=== PATIENT | male | born 1955 | race Caucasian/White ===

== ENCOUNTER → 2020-08-26 | Outpatient (CLI) | payer MEDICARE ==
[~2020-08-26] MED LIST: ALLOPURINOL5 GM PO; ATENOLOL50 MG PO; LISINOPRIL5 MG PO; MYFORTIC360 MG PO; OMEPRAZOLE20 M1 PO; PRAVASTATIN SOD40 MG PO; PREDNISONE5 MG PO; TACROLIMUS1 MG PO
== END ==
LOC: MRI 08:39
PROVIDERS: ATTEND Family Medicine
DX: M54.16 Radiculopathy, lumbar region (principal)
CPT/HCPCS: 72146

== ENCOUNTER → 2020-09-04 | Outpatient (CLI) | payer MEDICARE ==
[~2020-09-04] MED LIST changes: +GADOBENATE DIMEGLUMINE 1 ML IV ONE
[2020-09-04 11:31] LABS: CREATININE, SERUM 1.33 mg/dL (0.72-1.25)
== END ==
LOC: MRI 10:52
PROVIDERS: ATTEND Neurological Surgery
DX: M51.16 Intervertebral disc disorders with radiculopathy, lumbar region (principal)
CPT/HCPCS: 36415; 72158; 82565; 84520; A9577

== ENCOUNTER → 2020-10-13 | Outpatient (CLI) | payer MEDICARE ==
[~2020-10-13] MED LIST changes: +FERROUS GLUCON324 M1 PO; +FISH OIL 1,0001 EAC2 PO; -GADOBENATE DIMEGLUMINE 1 ML IV ONE; +MAGNESIUM200 MG PO; +OMEPRAZOLE40 MG PO; +RAPAMUNE1 MG PO; +VIT B12 PO; +VITAMIN D350 MCG PO
[2020-10-13 09:31] LABS: BASOPHILS % 0.5 % (0.0-1.0); EOSINOPHILS # (AUTO) 0.1 (0.0-0.4); HEMATOCRIT 42.3 % (38.2-49.6); HEMOGLOBIN 14.5 g/dL (14.0-18.0); LYMPHOCYTES # (AUTO) 1.6 (1.0-3.2); LYMPHOCYTES % 28.8 % (18.0-39.1); MEAN CORPUSCULAR HEMOGLOBIN 32.8 pg (28-32); MEAN CORPUSCULAR HGB CONC 34.3 g/dL (31-35); MEAN CORPUSCULAR VOLUME 95.7 fL (81-99); MONOCYTES # (AUTO) 0.6 (0.2-0.8); MONOCYTES % 10.9 % (4.4-11.3); NEUTROPHILS # (AUTO) 3.2 (2.1-6.9); NEUTROPHILS % 57.6 % (38.7-80.0); PLATELET COUNT 198 x10e3/uL (140-360); RED BLOOD COUNT 4.42 x10e6/uL (4.3-5.7)
== END ==
LOC: DX 14:14 → EDSTATUS 10-16 07:00
PROVIDERS: ATTEND Physical Medicine & Rehabilitation Pain Medicine
DX: Z01.812 Encounter for preprocedural laboratory examination (principal); Z01.818 Encounter for other preprocedural examination; Z20.822 Contact with and (suspected) exposure to COVID-19; M47.817 Spondylosis without myelopathy or radiculopathy, lumbosacral region
CPT/HCPCS: 36415; 85025; 93005; U0002

== ENCOUNTER → 2020-11-20 | Day surgery (SDC) | payer MEDICARE ==
[~2020-11-20] MED LIST changes: +BUPIVACAINE 0.25% 30ML SDV ONE; +FENTANYL CITRATE/PF 100MCG/2 ML INJ ONE; +IOPAMIDOL 200 MG/ML 20 ML VIAL IT ONE; +LIDOCAINE HCL 1% 30ML-PF VIAL ONE; +LIDOCAINE HCL 2% LOCAL INJ 5 ML SDV VIAL INJ ONE; +MIDAZOLAM HCL 2 MG/2 ML VIAL ONE; +POVIDONE IODINE 0.05% 0.05 % ML PO ONE; +PROPOFOL IV EMULSION 10 MG/ML 20 ML VIAL ONE; +TRIAMCINOLONE ACET 40 MG/ML VIAL ONE
[2020-11-20 09:20] VITALS: BP 127/86
== END | disposition home or self-care (01) ==
LOC: OR 06:28
PROVIDERS: ATTEND Physical Medicine & Rehabilitation Pain Medicine
DX: M46.1 Sacroiliitis, not elsewhere classified (principal); G57.01 Lesion of sciatic nerve, right lower limb; R93.7 Abnormal findings on diagnostic imaging of other parts of musculoskeletal system; M54.5 Low back pain; M53.86 Other specified dorsopathies, lumbar region; Z96.652 Presence of left artificial knee joint; Z96.611 Presence of right artificial shoulder joint; I12.0 Hypertensive chronic kidney disease with stage 5 chronic kidney disease or end stage renal disease; N18.6 End stage renal disease; Z94.0 Kidney transplant status; Z01.812 Encounter for preprocedural laboratory examination; Z20.822 Contact with and (suspected) exposure to COVID-19; E78.00 Pure hypercholesterolemia, unspecified; Z85.528 Personal history of other malignant neoplasm of kidney; Z90.5 Acquired absence of kidney
CPT/HCPCS: G0260; J2001 ×2; J2250; J2704; J3010; J3301; Q9967; U0002; 76000

== ENCOUNTER → 2021-01-29 | Day surgery (SDC) | payer MEDICARE ==
[2021-01-27 13:31] LABS: BASOPHILS % 0.3 % (0.0-1.0); EOSINOPHILS % 0.5 % (0.0-6.0); HEMATOCRIT 41.6 % (38.2-49.6); HEMOGLOBIN 14.1 g/dL (14.0-18.0); LYMPHOCYTES # (AUTO) 1.1 (1.0-3.2); LYMPHOCYTES % 17.9 % (18.0-39.1); MEAN CORPUSCULAR HEMOGLOBIN 32.5 pg (28-32); MEAN CORPUSCULAR HGB CONC 33.9 g/dL (31-35); MEAN CORPUSCULAR VOLUME 95.9 fL (81-99); MONOCYTES # (AUTO) 0.5 (0.2-0.8); MONOCYTES % 8.2 % (4.4-11.3); NEUTROPHILS # (AUTO) 4.5 (2.1-6.9); NEUTROPHILS % 72.8 % (38.7-80.0); PLATELET COUNT 207 x10e3/uL (140-360); RED BLOOD COUNT 4.34 x10e6/uL (4.3-5.7); RED CELL DISTRIBUTION WIDTH 12.8 % (11.7-14.4)
[~2021-01-29] MED LIST changes: +BUPIVACAINE HCL 0.5% 10ML MPF VIAL INJ ONE; +JARDIANCE25 MG PO; +LIPITOR10 MG PO; -MIDAZOLAM HCL 2 MG/2 ML VIAL ONE; -POVIDONE IODINE 0.05% 0.05 % ML PO ONE
[2021-01-29 10:50] VITALS: BP 110/79
== END | disposition home or self-care (01) ==
LOC: OR 06:59
PROVIDERS: ATTEND Physical Medicine & Rehabilitation Pain Medicine
DX: M46.1 Sacroiliitis, not elsewhere classified (principal); G57.01 Lesion of sciatic nerve, right lower limb; M79.18 Myalgia, other site; E11.9 Type 2 diabetes mellitus without complications; K21.9 Gastro-esophageal reflux disease without esophagitis; I10 Essential (primary) hypertension; G47.33 Obstructive sleep apnea (adult) (pediatric); E78.00 Pure hypercholesterolemia, unspecified; Z94.0 Kidney transplant status; Z01.810 Encounter for preprocedural cardiovascular examination; Z01.812 Encounter for preprocedural laboratory examination
CPT/HCPCS: 20552; G0260; 36415; 77002; 82948; 85025; 93005; J2001; J3010; J3301; Q9967

== ENCOUNTER → 2021-10-28 | Outpatient (CLI) | payer MEDICARE ==
[~2021-10-28] MED LIST changes: -BUPIVACAINE 0.25% 30ML SDV ONE; -BUPIVACAINE HCL 0.5% 10ML MPF VIAL INJ ONE; -FENTANYL CITRATE/PF 100MCG/2 ML INJ ONE; -IOPAMIDOL 200 MG/ML 20 ML VIAL IT ONE; -LIDOCAINE HCL 1% 30ML-PF VIAL ONE; -LIDOCAINE HCL 2% LOCAL INJ 5 ML SDV VIAL INJ ONE; -PROPOFOL IV EMULSION 10 MG/ML 20 ML VIAL ONE; -TRIAMCINOLONE ACET 40 MG/ML VIAL ONE
== END ==
LOC: MRI 12:26
PROVIDERS: ATTEND Family Medicine
DX: M54.50 Low back pain, unspecified (principal)
CPT/HCPCS: 72148

== ENCOUNTER 2021-11-23 02:57 | Inpatient (IN) | payer MEDICARE, OTHER ==
[~2021-11-23] VITALS: Ht 175.3 cm; Wt 86.2 kg
[2021-11-23] VITALS (22 sets, daily range): BP systolic 115–174; BP diastolic 83–110
[2021-11-23] MEDS ORDERED: ONDANSETRON HCL INJ 2MG/ML 2ML 2 MG/ML VIAL IV STA (03:00)
[2021-11-23] MEDS ORDERED: Morphine 4mg Syringe 4 MG/ML INJ IV STA (03:00)
[2021-11-23] MEDS ORDERED: ASPIRIN 325 MG TAB PO STA (03:00)
[2021-11-23] MEDS ORDERED: SODIUM CHLORIDE 0.9% 1000ML 1,000 ML ONE ×2 (03:19→04:02)
[2021-11-23 03:20] LABS: BASOPHILS % 0.2 % (0.0-1.0); EOSINOPHILS # (AUTO) 0.1 (0.0-0.4); EOSINOPHILS % 0.6 % (0.0-6.0); HEMATOCRIT 38.6 % (38.2-49.6); HEMOGLOBIN 12.4 g/dL (14.0-18.0); LYMPHOCYTES # (AUTO) 1.4 (1.0-3.2); LYMPHOCYTES % 10.7 % (18.0-39.1); MEAN CORPUSCULAR HEMOGLOBIN 29.7 pg (28-32); MEAN CORPUSCULAR HGB CONC 32.1 g/dL (31-35); MEAN CORPUSCULAR VOLUME 92.6 fL (81-99); MONOCYTES # (AUTO) 0.8 (0.2-0.8); MONOCYTES % 6.3 % (4.4-11.3); NEUTROPHILS # (AUTO) 10.4 (2.1-6.9); NEUTROPHILS % 81.1 % (38.7-80.0); PLATELET COUNT 280 x10e3/uL (140-360); RED BLOOD COUNT 4.17 x10e6/uL (4.3-5.7); RED CELL DISTRIBUTION WIDTH 16.4 % (11.7-14.4)
[2021-11-23] MEDS ORDERED: HEPARIN SOD (PORCINE) 1000 UNIT/ML 30ML ONE (04:01)
[2021-11-23] MEDS ORDERED: MIDAZOLAM HCL 2 MG/2 ML VIAL ONE (04:01)
[2021-11-23] MEDS ORDERED: NITROGLYCERIN/D5W 200 MCG/ML 250 ML ONE (04:02)
[2021-11-23] MEDS ORDERED: HEPARIN SOD/SOD CHLORIDE 2,000 ML ONE (04:02)
[2021-11-23] MEDS ORDERED: FENTANYL CITRATE/PF 100MCG/2 ML INJ ONE (04:02)
[2021-11-23] MEDS ORDERED: LIDOCAINE HCL 1% LOCAL INJ 20 ML VIAL ONE (04:02)
[2021-11-23] MEDS ORDERED: IOPAMIDOL 370 MG/ML 100 ML INFUS..BTL INJ ONE ×2 (04:02→06:13)
[2021-11-23 04:03] LABS: ALANINE AMINOTRANSFERASE 19 IU/L (0-55); ALBUMIN 3.4 g/dL (3.5-5.0); ALBUMIN/GLOBULIN RATIO 0.7 (0.8-2.0); ALKALINE PHOSPHATASE 102 IU/L (40-150); ANION GAP 15.5 mmol/L (8-16); CALCIUM 10.3 mg/dL (8.4-10.2); CARBON DIOXIDE 26 mmol/L (22-29); CHLORIDE 98 mmol/L (98-107); CREATINE KINASE 58 IU/L (30-200); EST GLOMERULAR FILTRATION RATE 38 ML/MIN (60-); GLUCOSE 193 mg/dL (74-118); POTASSIUM 3.5 mmol/L (3.5-5.1); SODIUM 136 mmol/L (136-145)
[2021-11-23] MEDS ORDERED: BIVALRIUDIN 250 MG/VIAL VIAL IV ONE (04:33)
[2021-11-23] MEDS: SODIUM CHLORIDE 0.9% 1000ML 1,000 ML IV SCH ×2 (04:45→14:10)
[2021-11-23 04:51] LABS: BLOOD UREA NITROGEN 23 mg/dL (7-26); BUN/CREATININE RATIO 12 (6-25)
[2021-11-23] MEDS: ONDANSETRON HCL INJ 2MG/ML 2ML 2 MG/ML VIAL IV PRN ×2 (06:11→19:40)
[2021-11-23] MEDS: Morphine 4mg Syringe 4 MG/ML INJ IV PRN ×2 (06:12→19:40)
[2021-11-23] MEDS ORDERED: ONDANSETRON HCL INJ 2MG/ML 2ML 2 MG/ML VIAL ONE (06:14)
[2021-11-23] MEDS ORDERED: SODIUM CHLORIDE 0.9% 100 ML ONE (06:14)
[2021-11-23] MEDS ORDERED: Morphine 4mg Syringe 4 MG/ML INJ ONE (06:14)
[2021-11-23] MEDS ORDERED: HYDROCODONE/APAP 5MG-325MG TAB PO PRN (09:00)
[2021-11-23] MEDS ORDERED: SODIUM CHLORIDE 0.9% 1000ML 1,000 ML IV SCH (12:00)
[2021-11-23 12:43] LABS: CREATINE KINASE 32 IU/L (30-200)
[2021-11-23 13:22] LABS: CLARITY,URINE CLEAR (CLEAR); COLOR,URINE YELLOW (YELLOW); KETONES,URINE NEGATIVE (NEGATIVE); LEUKOCYTE ESTERASE ,URINE NEGATIVE (NEGATIVE); NITRITE,URINE NEGATIVE (NEGATIVE); PROTEIN,URINE DIPSTICK 1+ (NEGATIVE); URINE UROBILINOGEN 0.2 mg/dL (0.2 - 1)
[2021-11-23 13:24] LABS: BACTERIA,URINE FEW /HPF; EPITHELIAL CELLS,URINE FEW /LPF; WBC,URINE (MAN) 0-5 /HPF (0-5)
[2021-11-23] MEDS: HYDROMORPHONE 1MG/1ML INJ IV PRN ×2 (13:29→22:28)
[2021-11-23] MEDS ORDERED: SODIUM CHLORIDE 0.9% 1000ML 1,000 ML IV ONE (13:30)
[2021-11-23 15:02] LABS: AMPHETAMINES SCREEN,URINE NEGATIVE (NEGATIVE); BENZODIAZEPINES SCREEN,URINE NEGATIVE (NEGATIVE); PHENCYCLIDINE SCREEN,URINE NEGATIVE (NEGATIVE)
[2021-11-23 19:58] LABS: CREATINE KINASE 31 IU/L (30-200)
[2021-11-24] VITALS (9 sets, daily range): BP systolic 137–176; BP diastolic 78–106
[2021-11-24] MEDS: SODIUM CHLORIDE 0.9% 1000ML 1,000 ML IV SCH (00:45)
[2021-11-24 05:03] LABS: BASOPHILS % 0.1 % (0.0-1.0); EOSINOPHILS # (AUTO) 0.1 (0.0-0.4); EOSINOPHILS % 0.7 % (0.0-6.0); HEMATOCRIT 33.1 % (38.2-49.6); HEMOGLOBIN 10.4 g/dL (14.0-18.0); LYMPHOCYTES # (AUTO) 0.9 (1.0-3.2); LYMPHOCYTES % 10.2 % (18.0-39.1); MEAN CORPUSCULAR HEMOGLOBIN 29.8 pg (28-32); MEAN CORPUSCULAR HGB CONC 31.4 g/dL (31-35); MEAN CORPUSCULAR VOLUME 94.8 fL (81-99); MONOCYTES # (AUTO) 0.7 (0.2-0.8); MONOCYTES % 8.1 % (4.4-11.3); NEUTROPHILS # (AUTO) 7.2 (2.1-6.9); NEUTROPHILS % 80.2 % (38.7-80.0); PLATELET COUNT 191 x10e3/uL (140-360); RED BLOOD COUNT 3.49 x10e6/uL (4.3-5.7); RED CELL DISTRIBUTION WIDTH 16.9 % (11.7-14.4)
[2021-11-24 05:39] LABS: ALBUMIN 2.2 g/dL (3.5-5.0); ALBUMIN/GLOBULIN RATIO 0.6 (0.8-2.0); ANION GAP 12.7 mmol/L (8-16); CALCIUM 8.9 mg/dL (8.4-10.2); CREATININE, SERUM 1.35 mg/dL (0.72-1.25); POTASSIUM 3.7 mmol/L (3.5-5.1)
[2021-11-24] MEDS ORDERED: CLONIDINE HCL 0.1 MG TAB PO PRN (08:30)
[2021-11-24] MEDS ORDERED: ATENOLOL 50 MG TAB PO SCH (09:00)
[2021-11-24] MEDS ORDERED: SIROLIMUS 1 MG TABLET PO SCH (09:00)
[2021-11-24] MEDS ORDERED: PREDNISONE 5 MG TAB PO SCH (09:00)
[2021-11-24] MEDS ORDERED: TACROLIMUS 0.5 MG CAP PO SCH (09:00)
[2021-11-24] MEDS ORDERED: LISINOPRIL 2.5 MG TAB PO SCH (21:00)
[2021-11-24] MEDS ORDERED: ATORVASTATIN 10 MG TAB PO SCH (21:00)
== END 2021-11-24 09:25 | disposition left against medical advice (07) | DRG 186 ==
LOC: ER 03:01 → ERHOLD 03:40 → UNDOADMIN 03:40 → CATH LAB 04:01 → ERHOLD 04:02 → ICU 04:54
PROVIDERS: ADMIT Family Medicine; ATTEND Family Medicine
PROC: 4A023N7 Measurement of Cardiac Sampling and Pressure, Left Heart, Percutaneous Approach (ICD-10-PCS; principal; 2021-11-23)
PROC: B2111ZZ Fluoroscopy of Multiple Coronary Arteries using Low Osmolar Contrast (ICD-10-PCS; 2021-11-23)
PROC: B2151ZZ Fluoroscopy of Left Heart using Low Osmolar Contrast (ICD-10-PCS; 2021-11-23)
DX: J94.2 Hemothorax (principal); J86.9 Pyothorax without fistula; C79.01 Secondary malignant neoplasm of right kidney and renal pelvis; N17.9 Acute kidney failure, unspecified; D84.9 Immunodeficiency, unspecified; T86.19 Other complication of kidney transplant; C79.51 Secondary malignant neoplasm of bone; Z85.528 Personal history of other malignant neoplasm of kidney; E78.5 Hyperlipidemia, unspecified; Z86.718 Personal history of other venous thrombosis and embolism; Z79.01 Long term (current) use of anticoagulants; Z86.711 Personal history of pulmonary embolism; Z90.5 Acquired absence of kidney; I51.7 Cardiomegaly; E83.52 Hypercalcemia; E78.00 Pure hypercholesterolemia, unspecified; I12.9 Hypertensive chronic kidney disease with stage 1 through stage 4 chronic kidney disease, or unspecified chronic kidney disease; E11.65 Type 2 diabetes mellitus with hyperglycemia; Z95.828 Presence of other vascular implants and grafts; Z85.830 Personal history of malignant neoplasm of bone; J90 Pleural effusion, not elsewhere classified; R91.1 Solitary pulmonary nodule
CPT/HCPCS: 36415; 71045; 71260; 76770; 76937; 80053; 80307; 81001; 82550; 82553; 83690; 83880; 83970; 84484; 85025; 85379; 87040; 93005; 93306; 93458; 94799; 99152; 99284; C1887; J0583; J1170; J1644; J2001; J2250; J2270; J2405; J2543; J3010; J7030; J7050; Q9967; U0002